=== PATIENT | male | born 1945 | race Caucasian/White ===

== ENCOUNTER 2021-09-05 18:07 | Emergency (ER) | payer OTHER, MEDICARE ==
[2021-09-05] MEDS ORDERED: NORVASC 10MG10 MG PO (18:22)
[2021-09-05] MEDS ORDERED: PROAIR HFA0.09 MG/AC IH (18:22)
[2021-09-05] MEDS ORDERED: MAXZIDE-25MG TA1 TAB PO (18:22)
[2021-09-05] MEDS ORDERED: ALBUTEROL1.25 MG/3 IH (18:22)
[2021-09-05] MEDS ORDERED: MELOXICAM15 MG PO (18:23)
[2021-09-05] MEDS ORDERED: SINGULAIR 110 MG/TAB PO (18:23)
[2021-09-05] MEDS ORDERED: MULTI-VITAMIN1 EACH PO (18:23)
[2021-09-05] MEDS ORDERED: STRIVERDI2.5 MCG/Ac IH (18:23)
[2021-09-05] MEDS ORDERED: ALDACTONE25 M1 PO (18:24)
[2021-09-05] MEDS ORDERED: THEOPHYLLINE400 M1 PO (18:24)
[2021-09-05] MEDS ORDERED: LASIX20 M1 PO (18:24)
[2021-09-05] MEDS ORDERED: PRAVASTATIN SOD80 MG PO (18:24)
[2021-09-05] MEDS ORDERED: AZITHROMYCIN 250MGPK PO (18:59)
[2021-09-05] MEDS ORDERED: PREDNISONE20 MG PO (18:59)
[2021-09-05 19:07] VITALS: BP 152/84
== END 2021-09-05 19:07 | disposition home or self-care (01) ==
LOC: ED 18:07
DX: J44.1 Chronic obstructive pulmonary disease with (acute) exacerbation (principal); F17.200 Nicotine dependence, unspecified, uncomplicated; Z99.81 Dependence on supplemental oxygen
CPT/HCPCS: J7512

== ENCOUNTER 2021-09-19 11:32 | Emergency (ER) | payer OTHER, MEDICARE ==
[~2021-09-19 11:32] MED LIST: ALBUTEROL1.25 MG/3 IH; ALDACTONE25 M1 PO; AZITHROMYCIN 250MGPK PO; LASIX20 M1 PO; MAXZIDE-25MG TA1 TAB PO; MELOXICAM15 MG PO; MULTI-VITAMIN1 EACH PO; NORVASC 10MG10 MG PO; PRAVASTATIN SOD80 MG PO; PREDNISONE20 MG PO; PROAIR HFA0.09 MG/AC IH; SINGULAIR 110 MG/TAB PO; STRIVERDI2.5 MCG/Ac IH; THEOPHYLLINE400 M1 PO
[2021-09-19 12:52] LABS: BASO # 0.05 K/mm3 (0.02-0.10); EOS # 0.28 K/mm3 (0.04-0.40); EOS % 2.8 % (0.0-4.0); HEMATOCRIT 43.7 % (42.0-52.0); HEMOGLOBIN 14.9 g/dL (13.5-18.0); LYMPH# 1.04 K/mm3 (1.50-4.00); MEAN CELL VOLUME 93 fl (78-100); MEAN CORPUSCULAR HEMOGLOBIN 32 pg (27-31); MEAN CORPUSCULAR HGB CONC 34 g/dL (33-37); MEAN PLATELET VOLUME 8.9 fl (7.4-10.4); NEU # 8.09 K/mm3 (1.40-6.50); PLATELET COUNT 240 K/mm3 (130-400); RED BLOOD COUNT 4.72 M/mm3 (4.20-5.60); RED CELL DISTRIBUTION WIDTH 13.5 % (11.5-14.5); WHITE BLOOD COUNT 10.2 K/mm3 (4.8-10.8)
[2021-09-19 13:02] LABS: CALCIUM 10.4 mg/dL (8.3-10.5)
[2021-09-19] MEDS ORDERED: IPRATROPIUM BROM3 M1 IH (13:21)
[2021-09-19] MEDS ORDERED: PREDNISONE20 M1 PO (13:21)
[2021-09-19] MEDS ORDERED: MORGIDOX 1X100100 MG PO (13:21)
[2021-09-19 13:28] VITALS: BP 129/59
== END 2021-09-19 13:29 | disposition home or self-care (01) ==
LOC: ED 11:32
PROVIDERS: Nurse Practitioner
DX: J44.1 Chronic obstructive pulmonary disease with (acute) exacerbation (principal)
CPT/HCPCS: J7512